=== PATIENT | male | born 1990 | race Caucasian/White ===

== ENCOUNTER 2019-05-08 09:06 | Emergency (ER) | payer BC ==
[2019-05-08 10:48] VITALS: BP 124/78
--- NOTE | 2019-05-08 10:48 | UC ---
Complaint Male HPI - HPI Summary HPI Summary: 28 year old presents with a chief complaint of "I think I have a UTI". Notes suprapubic discomfort and increase in urinary frequency over the past 3 days. Denies dysuria, nor urgency. Denies penile discharge. No associated flank pain, hematuria, n/v/d. - History of Current Complaint Stated Complaint: UTI SYMPTOMS Time Seen by Provider: 05/08/19 10:23 Hx Obtained From: Patient Severity Currently: Mild Location: Suprapubic Aggravating Factor(s): Other - before he needs to urinate Associated Signs And Symptoms: Negative: Diaphoresis, Back Pain, Fever, Hematuria, Dysuria, Constipation, Rectal Pain, Appetite, Nausea, Penile Discharge - Allergies/Home Medications Allergies/Adverse Reactions: Allergies Allergy/AdvReac Type Severity Reaction Status Date / Time No Known Allergies Allergy Verified 05/08/19 10:48 PMH/Surg Hx/FS Hx/Imm Hx Previously Healthy: Yes - Surgical History Surgical History: None - Family History Known Family History: Positive: Non-Contributory - Social History Alcohol Use: Occasionally Substance Use Type: None Smoking Status (MU): Light Every Day Tobacco Smoker - 1/2 ppd Type: Cigarettes Review of Systems All Other Systems Reviewed And Are Negative: Yes Constitutional: Negative: Fever, Chills, Fatigue Skin: Negative: Rash, Bruising Eyes: Positive: Negative ENT: Positive: Negative Respiratory: Positive: Negative Cardiovascular: Negative: Palpitations, Chest Pain Gastrointestinal: Negative: Abdominal Pain, Vomiting, Diarrhea, Nausea Genitourinary: Positive: Frequency. Negative: Dysuria, Hematuria, Urgency, Vaginal/Penile Burning, Vaginal/Penile Discharge, Vaginal/Penile Pain, Vaginal/ Penile Tenderness, Ulceration/Lesion Motor: Positive: Negative Neurovascular: Positive: Negative Musculoskeletal: Positive: Negative Neurological: Positive: Negative Psychological: Positive: Negative Is Patient Immunocompromised?: No Physical Exam Triage Information Reviewed: Yes Appearance: Well-Appearing Vital Signs Reviewed: Yes Eye Exam: Normal ENT: Positive: Normal ENT inspection Neck exam: Normal Respiratory: Positive: Chest non-tender, Lungs clear, Normal breath sounds Cardiovascular: Positive: RRR, No Murmur Abdomen Description: Positive: Nontender, No Organomegaly, Soft. Negative: CVA Tenderness (R), CVA Tenderness (L), Distended, Guarding, McBurney's Point Tenderness, Peritoneal Signs Male Genital Exam: Positive: Normal Genitalia, No Hernia, Other - Rectal exam shows no prostate swelling nor lesions, notes relief of sx with palpation of proatate.. Negative: Scrotum Tenderness (R), Scrotum Tenderness (L), Testicular Tenderness (R), Testicular Tenderness (L), Urethral Discharge Musculoskeletal Exam: Normal Neurological Exam: Normal Psychological Exam: Normal Skin: Negative: Rashes, Significant Lesion(s) Complaint Male Course/Dx - Differential Dx/Diagnosis Differential Diagnosis/HQI/PQRI: Ureteral Calculi, Urinary Tract Infection Provider Diagnosis: Prostatitis Discharge ED - Sign-Out/Discharge Documenting (check all that apply): Patient Departure All imaging exams completed and their final reports reviewed: No Studies - Discharge Plan Condition: Stable Disposition: HOME Prescriptions: Sulfamethox/Trimethoprim DS* [Bactrim DS 800/160 TAB*] 1 tab PO BID 10 Days #20 tab Patient Education Materials: Prostatitis (ED) Referrals: No Primary Care Phys,NOPCP [Primary Care Provider] - Additional Instructions: Drink plenty of water and take the antibiotic as prescribed for 10 days. We have provided a list of Primary Care Providers to establish with for follow-up. - Billing Disposition and Condition Condition: STABLE Disposition: Home
[2019-05-09 13:44] LABS: Chlamydia trachomatis NAA Negative (Negative); Neisseria gonorrhoeae (GC) NAA Negative (Negative)
== END 2019-05-08 11:38 | disposition home or self-care (01) ==
LOC: UCCORT 09:06
DX: N41.9 Inflammatory disease of prostate, unspecified (principal); F17.210 Nicotine dependence, cigarettes, uncomplicated
CPT/HCPCS: 81003; 87491; 87591; 99202; G0463